=== PATIENT | male | born 2000 | race Caucasian/White ===

== ENCOUNTER 2020-04-04 12:48 | Emergency (ER) | payer BC, MEDICAID ==
[~2020-04-04] VITALS: Ht 177 cm; Wt 82.0 kg
[~2020-04-04 12:48] MED LIST: ALBU8.5H2 IH; AMOX250S6 PO; CETI10TA20 PO; DEXAMETHASON PO; HYDR15SO6 PO; MONT10TA21 PO; TETRACAINE LOLLIPOPS
[2020-04-04] MEDS ORDERED: IBUPROFEN 800 MG (MOTRIN) TAB PO ONE ×2 (13:20→13:30)
--- NOTE | 2020-04-04 13:22 | ED General ---
General Chief Complaint: Cough/Cold/Flu Symptoms Stated Complaint: CP,SOB Nursing Triage Note: PT CO OF SOA, CHEST FEELING SCRATCHY. HAS HAD NO FEVERS SINCE 03/30. PT STATES HAS BEEN BACK TO WORK AND STARTED COUGHING TODAY. STATES WAS + ON 03/27 SX STARTED ON 03/25. Nursing Sepsis Screen: Possible Sepsis Risk Source of Information: Patient Exam Limitations: No Limitations History of Present Illness Date Seen by Provider: Apr 04, 2020 Time Seen by Provider: 13:21 Initial Comments To ER with shortness of breath and chest discomfort with breathing. No fever since 03/30. Had Covid on 03/27. Timing/Duration: 1-2 Days Severity: Moderate Associated Systoms: Denies Symptoms Allergies and Home Medications Allergies Coded Allergies: No Known Drug Allergies (Unverified , 04/13/14) Home Medications Albuterol 8.5 Gm Hfa.aer.ad, 2 PUFF IH Q4H PRN for WHEEZING, (Reported) prn wheezing Amoxicillin Trihydrate 250 Mg/5 Ml Susp.recon, 2 TSP PO BID Prescribed by: MARSHA MENDOZA on 04/22/14 1126 Hydrocodone Bit/Acetaminophen 15 Ml Solution, 2 TSP PO Q4H PRN for PAIN Prescribed by: MARSHA MENDOZA on 04/22/14 1126 Montelukast Sodium 10 Mg Tablet, 10 MG PO DAILY, (Reported) [Dexamethason] , 2 TSP PO DAILY Prescribed by: MARSHA MENDOZA on 04/22/14 1126 Patient Home Medication List Home Medication List Reviewed: Yes Review of Systems Review of Systems Constitutional: see HPI EENTM: see HPI Respiratory: cough Cardiovascular: no symptoms reported Genitourinary: no symptoms reported Musculoskeletal: no symptoms reported Skin: no symptoms reported Psychiatric/Neurological: No Symptoms Reported Hematologic/Lymphatic: No Symptoms Reported Immunological/Allergic: no symptoms reported Past Lkbhwhg-Btfhgh-Zjejkn Hx Patient Social History Alcohol Use: Denies Use Recreational Drug Use: No Smoking Status: Never a Smoker Recent Foreign Travel: No Contact w/Someone Who Travel: No Recent Infectious Disease Expo: No Recent Hopitalizations: No Physical Abuse: No Sexual Abuse: No Past Medical History Surgeries: Yes (ING HERNIA) Respiratory: Yes Cardiac: No Neurological: No Gastrointestinal: No Musculoskeletal: No Endocrine: No Blood Disorders: No Physical Exam Vital Signs Vital Signs - First Documented 04/04/20 13:05 Temp 35.9 Pulse 81 Resp 22 B/P (MAP) 120/68 (85) Pulse Ox 99 Capillary Refill : Less Than 3 Seconds Height, Weight, BMI Height: 5'10.00" Weight: 210lbs. oz. [id number]; 26.00 BMI Method: General Appearance: No Apparent Distress, WD/WN, Other (no tachycardia, tachypnea, or hypoxia. ) Eyes: Bilateral Eye Normal Inspection, Bilateral Eye PERRL, Bilateral Eye EOMI Respiratory: Normal Breath Sounds, No Accessory Muscle Use, No Respiratory Distress Cardiovascular: Regular Rate, Rhythm, Normal Peripheral Pulses Gastrointestinal: Normal Bowel Sounds, Non Tender, Soft Neurologic/Psychiatric: Alert, Oriented x3 Skin: Normal Color, Warm/Dry Progress/Results/Core Measures Suspected Sepsis Recent Fever Within 48 Hours: No Infection Criteria Present: Documented Infection New/Unexplained Altered Menta: No Sepsis Screen: Possible Sepsis Risk SIRS Temperature: Pulse: 81 Respiratory Rate: 22 Blood Pressure 120 /68 Mean: 85 Results/Orders My Orders Orders - ROSANNE CHANEL APRN Chest 1 View, Ap/Pa Only (04/04/20 13:21) Ibuprofen Tablet (Motrin Tablet) (04/04/20 13:30) Fibrin Degradation Products (04/04/20 13:49) Cbc With Automated Diff (04/04/20 13:49) Medications Given in ED Current Medications Medications Dose Ordered Sig/Belle Route Start Time Stop Time Status Last Admin Dose Admin Ibuprofen 800 mg ONCE ONCE PO 04/04/20 13:30 04/04/20 13:31 DC 04/04/20 13:24 800 MG Vital Signs/I&O 04/04/20 13:05 Temp 35.9 Pulse 81 Resp 22 B/P (MAP) 120/68 (85) Pulse Ox 99 Capillary Refill : Less Than 3 Seconds Blood Pressure Mean: 85 Departure Communication (Admissions) Patient would like to go ahead and leave now. Advised him he should stay until his lab results come back. He states that he is his 's ride home but will keep his phone on and I can call him with results. If they are abnormal he will come back. Impression Primary Impression: Pleurisy Disposition: 01 HOME, SELF-CARE Condition: Stable Departure-Patient Inst. Decision time for Depature: 13:57 Referrals: NO,LOCAL PHYSICIAN (PCP/Family) Primary Care Physician Patient Instructions: Pleuritic Chest Pain Add. Discharge Instructions: 1. Tylenol and ibuprofen for chest pain. Return to ER for any concerns. All discharge instructions reviewed with patient and/or family. Voiced understanding. ROSANNE CHANEL APRN Apr 04, 2020 13:21
[2020-04-04 14:04] LABS: BASOPHILS % (AUTO) 0 % (0-10); EOSINOPHILS # (AUTO) 0.1 10^3/uL (0.0-0.3); EOSINOPHILS % (AUTO) 1 % (0-10); HEMATOCRIT 45 % (40-54); HEMOGLOBIN 14.3 g/dL (13.3-17.7); LYMPHOCYTES # (AUTO) 2.6 10^3/uL (1.0-4.0); LYMPHOCYTES % (AUTO) 46 % (12-44); MEAN CORPUSCULAR HEMOGLOBIN 26 pg (25-34); MEAN CORPUSCULAR HGB CONC 32 g/dL (32-36); MEAN CORPUSCULAR VOLUME 84 fL (80-99); MEAN PLATELET VOLUME 9.2 fL (9.0-12.2); MONOCYTES # (AUTO) 0.4 10^3/uL (0.0-1.0); MONOCYTES % (AUTO) 7 % (0-12); NEUTROPHILS # (AUTO) 2.6 10^3/uL (1.8-7.8); NEUTROPHILS % (AUTO) 46 % (42-75); PLATELET COUNT 177 10^3/uL (130-400); WHITE BLOOD COUNT 5.7 10^3/uL (4.3-11.0)
--- NOTE | 2020-04-04 14:20 | Diagnostic Imaging Report ---
INDICATION: Cough. COMPARISON: None available. TECHNIQUE: Single frontal radiograph of the chest dated 04/04/2020. FINDINGS: The cardiac silhouette is within normal limits in size. No significant pulmonary vascular congestion. The lungs are clear of focal pulmonary opacity. No pleural effusion. No pneumothorax. No acute osseous abnormality. IMPRESSION: No acute cardiopulmonary abnormality. Dictated by: Dictated on workstation # [id number]
[2020-04-04 14:27] VITALS: BP 120/68
[2020-04-04 14:29] LABS: BUN/CREATININE RATIO 17; CARBON DIOXIDE 28 MMOL/L (21-32); CHLORIDE 104 MMOL/L (98-107); CREATININE SERUM 0.96 MG/DL (0.60-1.30); GFR ESTIMATED > 60; GLUCOSE 84 MG/DL (70-105); POTASSIUM 3.9 MMOL/L (3.6-5.0); SODIUM 140 MMOL/L (135-145)
== END 2020-04-04 14:27 | disposition home or self-care (01) ==
LOC: EDUNIT# 12:48 → ER 12:50
DX: U07.1 COVID-19 (principal); R09.1 Pleurisy
CPT/HCPCS: 36415; 71045; 80048; 85025; 85379